=== PATIENT | male | born 1970 | race Caucasian/White ===

== ENCOUNTER → 2022-09-03 10:09 | Outpatient (CLI) | payer OTHER, SELFPAY ==
--- NOTE | 2022-09-03 | DI.ECHO.S_ITS ---
[facility]---------+ [facility] +---------+ : : [address] : [place] : : : : [id number] : : : : Phone: [phone]+ Echocardiogram Report + + :Name: TINA LANDA JR Study Date: 09/03/2022 Height: 69 in : :[facility] ReadingLocation: Weight: 215 lb : : Gender: Male BSA: 2.1 m2 : :: 1970 Age: 52 yrs BP: 151/76 mmHg: :Reason For Study: DYSPNEA ON EXERTION : :Ordering Physician: GIDEON, : :ECTOR Performed By: Antonia Montejo : :Referring: ECTOR ARMENDARIZ : + + Interpretation Summary 1) Normal left ventricular size and thickness with low normal systolic function (EF 50-55%). 2) The right ventricle is normal in size and function. 3) There is mild aortic stenosis (valve area 1.5cm2, mean gradient 11mmHg, severity ratio 0.49). 4) No prior Echo available for comparison. Procedure: A two-dimensional transthoracic echocardiogram with color flow and Doppler was performed. The study quality was technically adequate. There is no prior echocardiogram noted for this patient. The patient was in sinus rhythm with heart rates between 76-85 bpm during the exam. Left Ventricle: The left ventricle is normal in size and wall thickness. The ejection fraction is estimated to be 50-55%. There are no obvious focal wall motion abnormalities noted but poor endocardial definition reduces the sensitivity for the detection of such. Right Ventricle: The right ventricle is normal in size and function. Atria: The left atrial size is normal. Right atrial size is normal. There is no Doppler evidence for an interatrial shunt. Mitral Valve: The mitral valve leaflets appear mildly thickened, but open well. There is mild mitral annular calcification. There is trace mitral regurgitation. Aortic Valve: The aortic valve is mildly calcified. There is discrete nodular thickening of the left coronary cusp. There is mild aortic stenosis. The peak aortic velocity is 2.2 m/sec. The aortic valve mean gradient is 11 mmHg. The calculated aortic valve area is 1.5 cm2. There is trace aortic regurgitation. Tricuspid Valve: The tricuspid valve is normal in structure and function. No tricuspid regurgitation. Pulmonary artery pressures cannot be estimated because of the lack of a measurable TR jet velocity. Pulmonic Valve: The pulmonic valve leaflets are thin and pliable; valve motion is normal. There is mild pulmonic regurgitation. Great Vessels: The aortic root is normal size. The dimensions of the ascending aorta are normal. The IVC is dilated (diameter is greater than 2.1 cm) yet it collapses greater than 50% with a sniff. This suggests a right atrial pressure of 8 mm Hg. Pericardium/ Pleura There is no pericardial effusion. There is no pleural effusion. MMode/2D Measurements & Calculations LVIDd: 4.4 cm LVOT diam: 2.1 cm LVIDs: 3.1 cm Ao root diam: 3.1 cm FS: 28.9 % asc Aorta Diam: 3.1 cm IVSd: 0.96 cm Ao Arch Diam (Prox Trans): 2.8 cm LVPWd: 0.99 cm LV siddiqi. diameter/BSA (cm/m^2): 2.1 LV sys. diameter/BSA (cm/m^2): 1.5 LA A2 area: 22.7 cm2 RA long axis: 5.6 cm LA A4 area: 18.6 cm2 RA area: 18.0 cm2 LA length (vol): 6.1 cm RA vol: 49.2 ml LA vol: 58.5 ml RA : 23.1 ml/m2 LA vol index: 27.5 ml/m2 IVC diam: 2.2 cm RVD1 (basal): 3.6 cm RVD2 (mid): 2.9 cm TAPSE: 2.1 cm Doppler Measurements & Calculations Ao V2 max: 217.5 cm/sec LVOT Max Blane: 97.2 cm/sec Ao V2 mean: 151.5 cm/sec LV V1 max P.8 mmHg Ao max P.9 mmHg LV V1 VTI: 21.4 cm Ao mean P.7 mmHg SAVANAH(I,D): 1.7 cm2 Ao V2 VTI: 43.5 cm SAVANAH(V,D): 1.5 cm2 sev ratio: 0.49 SAVANAH indexed to BSA (cm^2/m^2): 0.78 MV E max blane: 102.3 cm/sec PA V2 max: 116.1 cm/sec MV A max blane: 106.1 cm/sec PA V2 mean: 85.5 cm/sec MV E/A: 0.96 PA mean P.2 mmHg Med Peak E' Blane: 7.0 cm/sec PA pr(Accel): 36.2 mmHg E/E' med: 14.6 Lat Peak E' Blane: 7.2 cm/sec E/E' lat: 14.2 E/e' average: 14.4 MV dec time: 0.27 sec MVA(VTI): 2.2 cm2 MV V2 mean: 77.6 cm/sec SV(LVOT): 72.7 ml MV mean P.8 mmHg MV V2 VTI: 32.5 cm Reading Physician:03:44 PM
--- NOTE | 2022-09-03 21:34 | DI.NM.S_ITS ---
DATE OF SERVICE: 09/03/2022 PROCEDURE PERFORMED: Exercise treadmill, converted to pharmacologic stress and rest myocardial perfusion imaging study with gating to assess ejection fraction and regional wall motion. ORDERING PROVIDER: Thaddeus Armendariz MD INDICATIONS: The patient is a 52-year-old diabetic male with hypertension and exertional dyspnea. CARDIAC STRESS: The patient was initially stressed by a treadmill but was able to complete only 2 minutes, 50 seconds of stage I before being limited by bilateral calf pain concerning for claudication. Because of an inadequate heart rate response, regadenoson 0.4 mg was infused. With this, he had no anginal symptoms. His resting ECG showed a sinus rhythm with normal ST segments and there were no significant ST-segment shifts or arrhythmias with stress. Per protocol, 25.2 millicuries of technetium-99m Myoview was injected and he was imaged 15 minutes later using a gated SPECT acquisition protocol. Earlier in the day while at rest, he had been injected with 12.6 millicuries of technetium- 99m Myoview and was imaged 20 minutes later, again using a quantitated gated SPECT protocol. FINDINGS: 1. Raw data. There is fair myocardial tracer uptake. There is some evidence for diaphragmatic attenuation. The lung/heart ratio is normal at 0.27 with a normal TID ratio of 0.89. 2. Quantitated gated SPECT: Post-stress ejection fraction is 66% without any focal wall motion abnormality and specifically the inferior wall appears to have good contractility. The resting ejection fraction is 63% with a similar contraction pattern. Resting end-diastolic volume is mildly increased at 134 mL. 3. Myocardial perfusion imaging: Post-stress supine images show a mild to moderate perfusion defect throughout the inferior wall, but sparing the inferoapex, in a pattern consistent with diaphragmatic attenuation although this defect persists on the prone images, raising concern that it may reflect a true perfusion defect. There are no other perfusion defects. The resting images show an identical perfusion pattern to that of the post-stress supine images without any improvement.. IMPRESSION: 1. Probable abnormal myocardial perfusion study. 2. There is a fixed inferior defect that persists on the prone images concerning for a nontransmural myocardial infarction, although could also reflect diaphragmatic attenuation, supported by normal wall motion abnormality in this distribution. There is no evidence for any myocardial ischemia. 2. Normal left ventricular systolic function with mildly increased left ventricular volumes. 3. Limited exercise capacity because of bilateral calf pain, concerning for claudication. He had no angina or ECG evidence of ischemia, or any arrhythmias. Johan Puente Jr - TANA/michael/barak doc#: [id number]/job#: [id number] dd: 09/03/2022 16:39:00 dt: 09/03/2022 21:03:00 DICTATING MD/COPIES TO: Luis Marmolejo MD; Thaddeus Armendariz MD COPIES MNE: KSENIA;
== END ==
PROVIDERS: PCP Nurse Practitioner; Referring Provider Internal Medicine Cardiovascular Disease; Visit Provider Internal Medicine Cardiovascular Disease
DX: R06.09 Other forms of dyspnea (principal); E11.9 Type 2 diabetes mellitus without complications; I10 Essential (primary) hypertension
CPT/HCPCS: 78452; 93017; 93306; A9502; J2785

== ENCOUNTER → 2022-10-20 12:30 | Outpatient (CLI) | payer OTHER, SELFPAY ==
--- NOTE | 2022-10-20 | DI.US.S_ITS ---
PROCEDURE: US ARTERIAL DUPLEX LE BI INDICATIONS: PERIPHERAL VASCULAR DISEASE TECHNIQUE: Color and pulse Doppler interrogation was performed of both lower extremity arterial systems, with image documentation. COMPARISON: None. FINDINGS: Right lower extremity: Common femoral artery: 364 cm/sec, with triphasic flow. Deep femoral artery: 315 cm/sec, with triphasic flow. Proximal superficial femoral artery: 606 cm/sec, with biphasic flow. Mid superficial femoral artery: 295 cm/sec, with monophasic flow. Distal superficial femoral artery: 85 cm/sec, with monophasic flow. Popliteal artery: No flow identified Posterior tibial artery: 48 cm/sec, with monophasic flow. Anterior tibial artery/dorsalis pedis: 33 cm/sec, with monophasic flow. Arango-scale imaging description: Severe plaque throughout the right lower extremity. Left lower extremity: Common femoral artery: 370 cm/sec, with triphasic flow. Deep femoral artery: 343 cm/sec, with triphasic flow. Proximal superficial femoral artery: 76 cm/sec, with triphasic flow. Mid superficial femoral artery: 174 cm/sec, with monophasic flow. Distal superficial femoral artery: 171 cm/sec, with monophasic flow. Popliteal artery: 194 cm/sec, with monophasic flow. Posterior tibial artery: 49 cm/sec, with monophasic flow. Anterior tibial artery/dorsalis pedis: 29 cm/sec, with monophasic flow. Arango-scale imaging description: Severe plaque throughout the left lower extremity IMPRESSION: 1. Severe plaque in the common femoral arteries and superficial femoral arteries bilaterally. 2. The right has high-grade stenoses in the COOK FRUIT and SFA with no flow in the popliteal artery. 3. The left lower extremity has high-grade stenoses in the COOK FRUIT, SFA, and PA. 4. Recommend CT angiogram for further evaluation. Dictated by: Jason Godwin M.D. on 10/21/2022 at 11:18 Approved by: Jason Godwin M.D. on 10/21/2022 at 11:25
== END ==
PROVIDERS: PCP Nurse Practitioner; Referring Provider Internal Medicine Cardiovascular Disease; Visit Provider Internal Medicine Cardiovascular Disease
DX: I73.9 Peripheral vascular disease, unspecified (principal)
CPT/HCPCS: 93925

== ENCOUNTER → 2023-06-23 10:43 | Outpatient (CLI) | payer OTHER, SELFPAY ==
[2023-06-23 10:52] VITALS: BP 136/59; PULSE 84; RESP 18; TEMP 37; O2SAT 98
[2023-06-23 11:17] LABS: Add Manual Diff / Slide Review NO; Basophils Absolute Auto 0 /uL (0-100); Basophils Percent Auto 0.9 % (0-2); Eosinophils Absolute Auto 200 /uL (0-450); Eosinophils Percent Auto 3.8 % (2-4); Hematocrit 26.7 % (41-53); Hemoglobin 9.3 g/dL (13.5-17.5); Lymphocytes Absolute Auto 900 /uL (1100-4500); Lymphocytes Percent Auto 17.2 % (25-40); Mean Corpuscular HGB Conc 34.7 % (30-36); Mean Corpuscular Hemoglobin 30.9 PG (26-34); Monocytes Absolute Auto 500 /uL (0-900); Neutrophils Absolute Auto 3500 /uL (1500-7000); Neutrophils Percent Auto 69.1 % (50-75); Platelet Count 186 X10^3/uL (150-400); Red Cell Distribution Width 14.6 % (11.6-14.8); White Blood Cell Count 5.1 X10^3/uL (4.5-11.0)
[2023-06-23] MEDS: EPOETIN ALFA-EPBX 10,000 UNIT/ML VIAL 10000 UNIT SUBCUT (11:23)
== END ==
PROVIDERS: PCP Nurse Practitioner; Referring Provider Internal Medicine Nephrology; Visit Provider Internal Medicine Nephrology
DX: N18.4 Chronic kidney disease, stage 4 (severe) (principal); D63.1 Anemia in chronic kidney disease
CPT/HCPCS: 36415; 85025; 96372; Q5106

== ENCOUNTER → 2023-06-30 10:43 | Outpatient (CLI) | payer OTHER, SELFPAY ==
[2023-06-30 10:51] VITALS: BP 129/61; PULSE 80; RESP 18; TEMP 36.6; O2SAT 98
[2023-06-30] MEDS: EPOETIN ALFA-EPBX 10,000 UNIT/ML VIAL 10000 UNIT SUBCUT (11:02)
== END ==
PROVIDERS: PCP Nurse Practitioner; Referring Provider Internal Medicine Nephrology; Visit Provider Internal Medicine Nephrology
DX: I12.9 Hypertensive chronic kidney disease with stage 1 through stage 4 chronic kidney disease, or unspecified chronic kidney disease (principal); E11.22 Type 2 diabetes mellitus with diabetic chronic kidney disease; N18.4 Chronic kidney disease, stage 4 (severe); D63.1 Anemia in chronic kidney disease
CPT/HCPCS: 96372; Q5106

== ENCOUNTER → 2023-07-07 10:47 | Outpatient (CLI) | payer OTHER, SELFPAY ==
[2023-07-07 11:51] VITALS: BP 133/64; PULSE 87; RESP 18; TEMP 37.1; O2SAT 98
[2023-07-07 12:13] LABS: Add Manual Diff / Slide Review NO; Basophils Absolute Auto 0 /uL (0-100); Eosinophils Absolute Auto 200 /uL (0-450); Eosinophils Percent Auto 3.7 % (2-4); Lymphocytes Absolute Auto 900 /uL (1100-4500); Mean Corpuscular HGB Conc 34.5 % (30-36); Mean Corpuscular Hemoglobin 30.7 PG (26-34); Mean Corpuscular Volume 88.9 fL (80-100); Monocytes Absolute Auto 500 /uL (0-900); Neutrophils Absolute Auto 3200 /uL (1500-7000); Neutrophils Percent Auto 66.3 % (50-75); Platelet Count 185 X10^3/uL (150-400); Red Blood Cell Count 3.27 X10^6/uL (4.5-5.9); Red Cell Distribution Width 14.9 % (11.6-14.8); White Blood Cell Count 4.8 X10^3/uL (4.5-11.0)
[2023-07-07 12:16] LABS: BUN Creatinine Ratio 21.5 (6-22); Blood Urea Nitrogen 64 mg/dL (9-20); Calcium 9.6 mg/dL (8.4-10.2); Carbon Dioxide 22 mmol/L (22-32); Chloride 108 mmol/L (98-107); Estimated Glomerular Filt Rate 24 mL/min (>60); Glucose 70 mg/dL (70-100); HEMOLYSIS 67 (0-50); Potassium 5.3 mmol/L (3.4-5.1); Sodium 140 mmol/L (137-145)
[2023-07-07] MEDS: EPOETIN ALFA-EPBX 10,000 UNIT/ML VIAL 10000 UNIT SUBCUT (12:19)
[2023-07-07 12:51] LABS: Ferritin 69 ng/mL (18-464)
[2023-07-07 13:41] LABS: Percent Iron Saturation 29 % (20-50)
== END ==
LOC: ONC 10:47
PROVIDERS: PCP Nurse Practitioner; Referring Provider Internal Medicine Nephrology; Visit Provider Internal Medicine Nephrology
DX: E11.22 Type 2 diabetes mellitus with diabetic chronic kidney disease (principal); I12.9 Hypertensive chronic kidney disease with stage 1 through stage 4 chronic kidney disease, or unspecified chronic kidney disease; N18.4 Chronic kidney disease, stage 4 (severe); D63.1 Anemia in chronic kidney disease; Z79.4 Long term (current) use of insulin
CPT/HCPCS: 80048; 82728; 85025; 96372; Q5106

== ENCOUNTER → 2023-07-14 10:48 | Outpatient (CLI) | payer OTHER, SELFPAY ==
[2023-07-14 11:00] VITALS: BP 138/60; PULSE 85; RESP 18; TEMP 36.6; O2SAT 97
[2023-07-14] MEDS: EPOETIN ALFA-EPBX 10,000 UNIT/ML VIAL 10000 UNIT SUBCUT (11:11)
[2023-07-21 11:24] LABS: Add Manual Diff / Slide Review NO; Basophils Absolute Auto 100 /uL (0-100); Basophils Percent Auto 1.2 % (0-2); Eosinophils Absolute Auto 200 /uL (0-450); Eosinophils Percent Auto 4.3 % (2-4); Hemoglobin 10.6 g/dL (13.5-17.5); Lymphocytes Absolute Auto 900 /uL (1100-4500); Lymphocytes Percent Auto 16.4 % (25-40); Mean Corpuscular HGB Conc 34.1 % (30-36); Mean Corpuscular Hemoglobin 30.4 PG (26-34); Mean Corpuscular Volume 89.2 fL (80-100); Monocytes Absolute Auto 700 /uL (0-900); Monocytes Percent Auto 13.4 % (3-14); Neutrophils Absolute Auto 3500 /uL (1500-7000); Neutrophils Percent Auto 64.7 % (50-75); Platelet Count 211 X10^3/uL (150-400); Red Blood Cell Count 3.47 X10^6/uL (4.5-5.9); Red Cell Distribution Width 14.5 % (11.6-14.8); White Blood Cell Count 5.4 X10^3/uL (4.5-11.0)
== END ==
LOC: ONC 10:48
PROVIDERS: PCP Nurse Practitioner; Referring Provider Internal Medicine Nephrology; Visit Provider Internal Medicine Nephrology
DX: E11.22 Type 2 diabetes mellitus with diabetic chronic kidney disease (principal); I13.10 Hypertensive heart and chronic kidney disease without heart failure, with stage 1 through stage 4 chronic kidney disease, or unspecified chronic kidney disease; N18.4 Chronic kidney disease, stage 4 (severe); D63.1 Anemia in chronic kidney disease; Z79.4 Long term (current) use of insulin
CPT/HCPCS: 85025; 96372; Q5106

== ENCOUNTER → 2023-07-21 11:05 | Outpatient (CLI) | payer OTHER, SELFPAY ==
[2023-07-21 11:28] VITALS: BP 126/62; PULSE 79; RESP 16; TEMP 36.8; O2SAT 95
[2023-07-21] MEDS: EPOETIN ALFA-EPBX 10,000 UNIT/ML VIAL 10000 UNIT SUBCUT (11:56)
== END ==
LOC: ONC 11:05
PROVIDERS: PCP Nurse Practitioner; Referring Provider Internal Medicine Nephrology; Visit Provider Internal Medicine Nephrology
DX: D63.1 Anemia in chronic kidney disease (principal); N18.4 Chronic kidney disease, stage 4 (severe)
CPT/HCPCS: 36415; 96372; Q5106

== ENCOUNTER → 2023-07-28 10:40 | Outpatient (CLI) | payer OTHER, SELFPAY ==
[2023-07-28 10:57] VITALS: BP 121/51; PULSE 72; RESP 16; TEMP 37.3; O2SAT 98
[2023-07-28] MEDS: EPOETIN ALFA-EPBX 10,000 UNIT/ML VIAL 10000 UNIT SUBCUT (11:05)
== END ==
LOC: ONC 10:41
PROVIDERS: PCP Nurse Practitioner; Referring Provider Internal Medicine Nephrology; Visit Provider Internal Medicine Nephrology
DX: N18.4 Chronic kidney disease, stage 4 (severe) (principal); D63.1 Anemia in chronic kidney disease
CPT/HCPCS: 96372; Q5106

== ENCOUNTER → 2023-08-04 10:44 | Outpatient (CLI) | payer OTHER, SELFPAY ==
[2023-08-04 11:06] VITALS: BP 129/66; PULSE 83; RESP 16; TEMP 36.7; O2SAT 100
[2023-08-04 11:20] LABS: BUN Creatinine Ratio 13.9 (6-22); Blood Urea Nitrogen 47 mg/dL (9-20); Calcium 8.7 mg/dL (8.4-10.2); Carbon Dioxide 24 mmol/L (22-32); Chloride 111 mmol/L (98-107); Estimated Glomerular Filt Rate 21 mL/min (>60); Glucose 53 mg/dL (70-100); HEMOLYSIS < 15 (0-50); Potassium 5.3 mmol/L (3.4-5.1); Sodium 141 mmol/L (137-145)
[2023-08-04 11:23] LABS: Add Manual Diff / Slide Review NO; Basophils Absolute Auto 0 /uL (0-100); Basophils Percent Auto 1.1 % (0-2); Eosinophils Absolute Auto 200 /uL (0-450); Eosinophils Percent Auto 3.7 % (2-4); Hematocrit 28.5 % (41-53); Hemoglobin 9.8 g/dL (13.5-17.5); Lymphocytes Absolute Auto 700 /uL (1100-4500); Lymphocytes Percent Auto 16.9 % (25-40); Mean Corpuscular HGB Conc 34.4 % (30-36); Mean Corpuscular Hemoglobin 30.7 PG (26-34); Mean Corpuscular Volume 89.1 fL (80-100); Monocytes Absolute Auto 400 /uL (0-900); Monocytes Percent Auto 10.2 % (3-14); Neutrophils Absolute Auto 3000 /uL (1500-7000); Neutrophils Percent Auto 68.1 % (50-75); Platelet Count 215 X10^3/uL (150-400); Red Cell Distribution Width 14.7 % (11.6-14.8); White Blood Cell Count 4.4 X10^3/uL (4.5-11.0)
[2023-08-04] MEDS: EPOETIN ALFA-EPBX 10,000 UNIT/ML VIAL 10000 UNIT SUBCUT (11:33)
== END ==
LOC: ONC 10:44
PROVIDERS: PCP Nurse Practitioner; Referring Provider Internal Medicine Nephrology; Visit Provider Internal Medicine Nephrology
DX: N18.4 Chronic kidney disease, stage 4 (severe) (principal); D63.1 Anemia in chronic kidney disease
CPT/HCPCS: 36415; 80048; 85025; 96372; Q5106

== ENCOUNTER → 2023-08-11 10:50 | Outpatient (CLI) | payer OTHER, SELFPAY ==
[2023-08-11 10:55] VITALS: BP 131/68; PULSE 86; RESP 16; TEMP 37.3; O2SAT 97
[2023-08-11] MEDS: EPOETIN ALFA-EPBX 10,000 UNIT, EPOETIN ALFA-EPBX 4,000 UNIT 14000 UNIT SUBCUT (11:03)
== END ==
PROVIDERS: PCP Nurse Practitioner; Referring Provider Internal Medicine Nephrology; Visit Provider Internal Medicine Nephrology
DX: N18.4 Chronic kidney disease, stage 4 (severe) (principal); D63.1 Anemia in chronic kidney disease
CPT/HCPCS: 96372; Q5106

== ENCOUNTER → 2023-08-18 10:49 | Outpatient (CLI) | payer OTHER, SELFPAY ==
[2023-08-18 11:05] LABS: Add Manual Diff / Slide Review NO; Basophils Absolute Auto 0 /uL (0-100); Eosinophils Absolute Auto 200 /uL (0-450); Eosinophils Percent Auto 4.4 % (2-4); Hematocrit 29.9 % (41-53); Hemoglobin 10.3 g/dL (13.5-17.5); Lymphocytes Absolute Auto 800 /uL (1100-4500); Lymphocytes Percent Auto 18.1 % (25-40); Mean Corpuscular HGB Conc 34.5 % (30-36); Mean Corpuscular Hemoglobin 30.5 PG (26-34); Mean Corpuscular Volume 88.3 fL (80-100); Monocytes Absolute Auto 500 /uL (0-900); Monocytes Percent Auto 10.2 % (3-14); Neutrophils Absolute Auto 3100 /uL (1500-7000); Neutrophils Percent Auto 66.3 % (50-75); Platelet Count 189 X10^3/uL (150-400); Red Blood Cell Count 3.38 X10^6/uL (4.5-5.9); White Blood Cell Count 4.6 X10^3/uL (4.5-11.0)
[2023-08-18] MEDS: EPOETIN ALFA-EPBX 10,000 UNIT, EPOETIN ALFA-EPBX 4,000 UNIT 14000 UNIT SUBCUT (11:49)
[2023-08-18 11:57] VITALS: BP 143/72; PULSE 82; RESP 16; TEMP 37.1; O2SAT 95
== END ==
LOC: ONC 10:50
PROVIDERS: PCP Nurse Practitioner; Referring Provider Internal Medicine Nephrology; Visit Provider Internal Medicine Nephrology
DX: N18.4 Chronic kidney disease, stage 4 (severe) (principal); D63.1 Anemia in chronic kidney disease
CPT/HCPCS: 36415; 85025; 96372; Q5106

== ENCOUNTER → 2023-08-25 10:43 | Outpatient (CLI) | payer OTHER, SELFPAY ==
[2023-08-25 10:52] VITALS: BP 129/64; PULSE 88; RESP 16; TEMP 37.2; O2SAT 95
[2023-08-25] MEDS: EPOETIN ALFA-EPBX 10,000 UNIT, EPOETIN ALFA-EPBX 4,000 UNIT 14000 UNIT SUBCUT (11:02)
== END ==
LOC: ONC 10:43
PROVIDERS: PCP Nurse Practitioner; Referring Provider Internal Medicine Nephrology; Visit Provider Internal Medicine Nephrology
DX: N18.4 Chronic kidney disease, stage 4 (severe) (principal); D63.1 Anemia in chronic kidney disease
CPT/HCPCS: 96372; Q5106

== ENCOUNTER → 2023-09-01 10:48 | Outpatient (CLI) | payer OTHER, SELFPAY ==
--- NOTE | 2023-09-01 12:20 | PC.NURSE ---
Addendum entered by Carla Soto R.N. 09/01/23 12:26: LVM for pt to return to clinic in 2 weeks for labs and possible injection per Tammy at Dr. Rees's office. Original Note: Hgb 11.6: pt did not need Retacrit today. Spoke to Tammy at Dr. Rees's office about pt not needing injection today. Pt will return to clinic in 2 weeks for CBC and possible injection.
== END ==
LOC: ONC 10:49
PROVIDERS: PCP Nurse Practitioner; Referring Provider Internal Medicine Nephrology; Visit Provider Internal Medicine Nephrology
DX: N18.4 Chronic kidney disease, stage 4 (severe) (principal); D63.1 Anemia in chronic kidney disease
CPT/HCPCS: 36415; 80048; 85025

== ENCOUNTER → 2023-09-15 10:59 | Outpatient (CLI) | payer OTHER, SELFPAY ==
[2023-09-15 11:35] LABS: Add Manual Diff / Slide Review NO; Basophils Absolute Auto 100 /uL (0-100); Basophils Percent Auto 1.1 % (0-2); Eosinophils Absolute Auto 200 /uL (0-450); Eosinophils Percent Auto 3.3 % (2-4); Hematocrit 33.8 % (41-53); Hemoglobin 11.8 g/dL (13.5-17.5); Lymphocytes Absolute Auto 1100 /uL (1100-4500); Lymphocytes Percent Auto 20.1 % (25-40); Mean Corpuscular HGB Conc 34.8 % (30-36); Mean Corpuscular Hemoglobin 29.5 PG (26-34); Mean Corpuscular Volume 84.6 fL (80-100); Monocytes Absolute Auto 500 /uL (0-900); Monocytes Percent Auto 9.1 % (3-14); Neutrophils Absolute Auto 3700 /uL (1500-7000); Neutrophils Percent Auto 66.4 % (50-75); Platelet Count 203 X10^3/uL (150-400); Red Cell Distribution Width 14.7 % (11.6-14.8); White Blood Cell Count 5.6 X10^3/uL (4.5-11.0)
[2023-09-15 11:44] LABS: BUN Creatinine Ratio 14.1 (6-22); Blood Urea Nitrogen 45 mg/dL (9-20); Carbon Dioxide 25 mmol/L (22-32); Chloride 109 mmol/L (98-107); Estimated Glomerular Filt Rate 22 mL/min (>60); Glucose 110 mg/dL (70-100); HEMOLYSIS < 15 (0-50); Potassium 4.1 mmol/L (3.4-5.1); Sodium 142 mmol/L (137-145)
--- NOTE | 2023-09-15 11:54 | PC.NURSE ---
HGB 11.8 from today's blood draw; per AJ Louis at Dr. Bass's office patient to return in 2 weeks; patient informed and he voiced understanding.
[2023-09-15 12:21] VITALS: BP 139/81; PULSE 94; RESP 16; TEMP 36.8
== END ==
LOC: ONC 10:59
PROVIDERS: PCP Nurse Practitioner; Referring Provider Internal Medicine Nephrology; Visit Provider Internal Medicine Nephrology
DX: N18.4 Chronic kidney disease, stage 4 (severe) (principal); D63.1 Anemia in chronic kidney disease
CPT/HCPCS: 36415; 80048; 85025

== ENCOUNTER → 2023-09-29 10:44 | Outpatient (CLI) | payer OTHER, SELFPAY ==
[2023-09-29 11:14] LABS: Add Manual Diff / Slide Review NO; Basophils Absolute Auto 0 /uL (0-100); Basophils Percent Auto 0.8 % (0-2); Eosinophils Absolute Auto 200 /uL (0-450); Eosinophils Percent Auto 3.1 % (2-4); Hematocrit 31.7 % (41-53); Hemoglobin 11.1 g/dL (13.5-17.5); Lymphocytes Absolute Auto 900 /uL (1100-4500); Mean Corpuscular HGB Conc 34.9 % (30-36); Mean Corpuscular Hemoglobin 29.7 PG (26-34); Mean Corpuscular Volume 85.1 fL (80-100); Monocytes Absolute Auto 400 /uL (0-900); Monocytes Percent Auto 8.2 % (3-14); Neutrophils Absolute Auto 3800 /uL (1500-7000); Neutrophils Percent Auto 70.9 % (50-75); Platelet Count 218 X10^3/uL (150-400); Red Blood Cell Count 3.72 X10^6/uL (4.5-5.9); White Blood Cell Count 5.3 X10^3/uL (4.5-11.0)
[2023-09-29 11:23] VITALS: BP 123/62; PULSE 89; RESP 16; TEMP 36.7; O2SAT 99
[2023-09-29 11:39] LABS: Percent Iron Saturation 244 % (20-50)
[2023-09-29] MEDS: EPOETIN ALFA-EPBX 10,000 UNIT/ML VIAL 10000 UNIT SUBCUT (11:46)
[2023-09-29 18:39] LABS: Ferritin 109 ng/mL (18-464)
== END ==
PROVIDERS: PCP Nurse Practitioner; Referring Provider Internal Medicine Nephrology; Visit Provider Internal Medicine Nephrology
DX: N18.4 Chronic kidney disease, stage 4 (severe) (principal); D63.1 Anemia in chronic kidney disease
CPT/HCPCS: 82728; 85025; 96372; Q5106

== ENCOUNTER → 2023-10-13 10:49 | Outpatient (CLI) | payer OTHER, SELFPAY ==
[2023-10-13 11:16] VITALS: BP 130/70; PULSE 86; RESP 16; TEMP 36.6; O2SAT 94
[2023-10-13] MEDS: EPOETIN ALFA-EPBX 10,000 UNIT/ML VIAL 10000 UNIT SUBCUT (12:08)
== END ==
LOC: ONC 10:50
PROVIDERS: PCP Nurse Practitioner; Referring Provider Internal Medicine Nephrology; Visit Provider Internal Medicine Nephrology
DX: N18.4 Chronic kidney disease, stage 4 (severe) (principal); D63.1 Anemia in chronic kidney disease
CPT/HCPCS: 96372; Q5106

== ENCOUNTER → 2023-10-27 10:49 | Outpatient (CLI) | payer OTHER, SELFPAY ==
[2023-10-27 11:21] VITALS: BP 135/74; PULSE 91; RESP 16; TEMP 36.9; O2SAT 96
[2023-10-27] MEDS: EPOETIN ALFA-EPBX 10,000 UNIT/ML VIAL 10000 UNIT SUBCUT (11:43)
== END ==
LOC: ONC 10:50
PROVIDERS: PCP Nurse Practitioner; Referring Provider Internal Medicine Nephrology; Visit Provider Internal Medicine Nephrology
DX: N18.4 Chronic kidney disease, stage 4 (severe) (principal); D63.1 Anemia in chronic kidney disease
CPT/HCPCS: 36415; 96372; Q5106

== ENCOUNTER → 2023-11-01 09:03 | Outpatient (CLI) | payer OTHER, SELFPAY ==
--- NOTE | 2023-11-01 09:04 | DI.ECHO.S_ITS ---
[facility]---------+ [facility] : : [address] : : [place] : : [id number] : : Phone: [phone] Echocardiogram Report + + :Name: TINA LANDA JR Study Date: 11/01/2023 Height: 69 in : :[facility] ReadingLocation: Weight: 202 lb : : Gender: Male BSA: 2.1 m2 : :: 1970 Age: 53 yrs BP: 143/82 mmHg: :Reason For Study: AORTIC STENOSIS : :Ordering Physician: GIDEON, : :ECTOR Performed By: Antonia Montejo : :Referring: ECTOR ARMENDARIZ : + + Interpretation Summary 1) Normal left ventricular size, wall motion, and systolic function (EF 55- 60%). 2) Normal right ventricular size and function. 3) There is mild aortic stenosis (valve area 1.5cm2, mean gradient 15mmHg, severity ratio 0.41). 4) Compared to the echo done 09/03/2022, no significant change. Procedure: A two-dimensional transthoracic echocardiogram with color flow and Doppler was performed. The study quality was technically adequate. Comparison is made with the echocardiogram of 09/03/2022. The heart rate ranged between 87-97 bpm during the study. Left Ventricle: The left ventricle is normal in size. There is mild concentric left ventricular hypertrophy. The ejection fraction is estimated to be 55-60%. Left ventricular wall motion is normal. Right Ventricle: The right ventricle is normal in size and function. Atria: The left atrial size is normal. Right atrial size is normal. There is no Doppler evidence for an interatrial shunt. Mitral Valve: There is mild mitral annular calcification. There is no mitral regurgitation noted. Aortic Valve: The aortic valve is mildly calcified. The aortic valve is trileaflet. The peak aortic velocity is 2.4 m/sec. The aortic valve mean gradient is 15 mmHg. The calculated aortic valve area is 1.5 cm2. There is mild to moderate aortic stenosis. No aortic regurgitation is present. Tricuspid Valve: The tricuspid valve is normal in structure and function. There is trace tricuspid regurgitation. Pulmonary artery pressures cannot be estimated because of the lack of a measurable TR jet velocity. Pulmonic Valve: The pulmonic valve leaflets are thin and pliable; valve motion is normal. There is no pulmonic valvular regurgitation. Great Vessels: The aortic root is normal size. The dimensions of the ascending aorta are normal. The IVC is of normal diameter and collapses greater than 50% with a sniff. This suggests a low right atrial pressure of 3 mm Hg. Pericardium/ Pleura There is no pericardial effusion. There is no pleural effusion. MMode/2D Measurements & Calculations LVIDd: 3.9 cm LVOT diam: 2.2 cm LVIDs: 2.6 cm Ao root diam: 3.7 cm FS: 34.9 % asc Aorta Diam: 3.2 cm IVSd: 1.1 cm Ao Arch Diam (Prox Trans): 3.0 cm LVPWd: 1.1 cm LV siddiqi. diameter/BSA (cm/m^2): 1.9 LV sys. diameter/BSA (cm/m^2): 1.2 LA A2 area: 20.3 cm2 RA long axis: 4.8 cm LA A4 area: 16.2 cm2 RA area: 14.7 cm2 LA length (vol): 5.1 cm RA vol: 38.0 ml LA vol: 54.5 ml RA : 18.3 ml/m2 LA vol index: 26.3 ml/m2 IVC diam: 1.6 cm RVD1 (basal): 3.6 cm TAPSE: 2.0 cm Doppler Measurements & Calculations Ao V2 max: 239.1 cm/sec LVOT Max Blane: 91.2 cm/sec Ao V2 mean: 169.7 cm/sec LV V1 max P.3 mmHg Ao max P.3 mmHg LV V1 VTI: 18.2 cm Ao mean P.1 mmHg SAVANAH(I,D): 1.6 cm2 Ao V2 VTI: 44.0 cm SAVANAH(V,D): 1.5 cm2 sev ratio: 0.41 SAVANAH indexed to BSA (cm^2/m^2): 0.77 MV E max blane: 83.5 cm/sec PA V2 max: 102.0 cm/sec MV A max blane: 138.2 cm/sec PA V2 mean: 77.4 cm/sec MV E/A: 0.60 PA mean P.6 mmHg Lat Peak E' Blane: 7.3 cm/sec PA pr(Accel): 29.3 mmHg E/E' lat: 11.4 MV dec time: 0.19 sec SV(OT): 70.4 ml Reading Physician:08:42 AM
== END ==
PROVIDERS: PCP Nurse Practitioner; Referring Provider Internal Medicine Cardiovascular Disease; Visit Provider Internal Medicine Cardiovascular Disease
DX: I34.81 Nonrheumatic mitral (valve) annulus calcification (principal); I35.0 Nonrheumatic aortic (valve) stenosis
CPT/HCPCS: 93306

== ENCOUNTER → 2023-11-24 10:28 | Outpatient (CLI) | payer OTHER, SELFPAY ==
[2023-11-24 11:04] LABS: Add Manual Diff / Slide Review NO; Basophils Absolute Auto 100 /uL (0-100); Basophils Percent Auto 1.1 % (0-2); Eosinophils Absolute Auto 200 /uL (0-450); Eosinophils Percent Auto 3.8 % (2-4); Hematocrit 30.1 % (41-53); Hemoglobin 10.5 g/dL (13.5-17.5); Lymphocytes Absolute Auto 1100 /uL (1100-4500); Lymphocytes Percent Auto 19.7 % (25-40); Mean Corpuscular HGB Conc 34.8 % (30-36); Mean Corpuscular Hemoglobin 30.4 PG (26-34); Mean Corpuscular Volume 87.3 fL (80-100); Monocytes Absolute Auto 400 /uL (0-900); Monocytes Percent Auto 6.6 % (3-14); Neutrophils Absolute Auto 3700 /uL (1500-7000); Neutrophils Percent Auto 68.8 % (50-75); Platelet Count 213 X10^3/uL (150-400); Red Blood Cell Count 3.45 X10^6/uL (4.5-5.9); Red Cell Distribution Width 16.6 % (11.6-14.8); White Blood Cell Count 5.4 X10^3/uL (4.5-11.0)
[2023-11-24 11:17] VITALS: BP 122/62; PULSE 76; RESP 18; TEMP 37.2; O2SAT 97
[2023-11-24 11:22] LABS: BUN Creatinine Ratio 13.2 (6-22); Blood Urea Nitrogen 40 mg/dL (9-20); Calcium 8.3 mg/dL (8.4-10.2); Carbon Dioxide 25 mmol/L (22-32); Chloride 110 mmol/L (98-107); Estimated Glomerular Filt Rate 24 mL/min (>60); Glucose 67 mg/dL (70-100); HEMOLYSIS < 15 (0-50); Potassium 4.4 mmol/L (3.4-5.1); Sodium 141 mmol/L (137-145)
[2023-11-24] MEDS: EPOETIN ALFA-EPBX 10,000 UNIT/ML VIAL 10000 UNIT SUBCUT (11:49)
== END ==
LOC: ONC 10:29
PROVIDERS: PCP Nurse Practitioner; Referring Provider Internal Medicine Nephrology; Visit Provider Internal Medicine Nephrology
DX: N18.4 Chronic kidney disease, stage 4 (severe) (principal); D63.1 Anemia in chronic kidney disease
CPT/HCPCS: 80048; 85025; 96372; Q5106

== ENCOUNTER → 2023-12-08 10:53 | Outpatient (CLI) | payer OTHER, SELFPAY ==
[2023-12-08 11:05] VITALS: BP 114/62; PULSE 94; RESP 79; TEMP 37.2; O2SAT 99
[2023-12-08 11:26] LABS: Add Manual Diff / Slide Review NO; Basophils Absolute Auto 0 /uL (0-100); Basophils Percent Auto 0.9 % (0-2); Eosinophils Absolute Auto 100 /uL (0-450); Eosinophils Percent Auto 2.4 % (2-4); Hematocrit 30.4 % (41-53); Hemoglobin 10.7 g/dL (13.5-17.5); Lymphocytes Absolute Auto 1000 /uL (1100-4500); Lymphocytes Percent Auto 19.5 % (25-40); Mean Corpuscular Hemoglobin 30.6 PG (26-34); Mean Corpuscular Volume 87.3 fL (80-100); Monocytes Absolute Auto 500 /uL (0-900); Monocytes Percent Auto 8.9 % (3-14); Neutrophils Absolute Auto 3600 /uL (1500-7000); Neutrophils Percent Auto 68.3 % (50-75); Platelet Count 194 X10^3/uL (150-400); Red Blood Cell Count 3.48 X10^6/uL (4.5-5.9); Red Cell Distribution Width 16.6 % (11.6-14.8); White Blood Cell Count 5.2 X10^3/uL (4.5-11.0)
[2023-12-08 11:33] LABS: BUN Creatinine Ratio 11.2 (6-22); Blood Urea Nitrogen 35 mg/dL (9-20); Calcium 8.6 mg/dL (8.4-10.2); Carbon Dioxide 26 mmol/L (22-32); Chloride 111 mmol/L (98-107); Estimated Glomerular Filt Rate 23 mL/min (>60); Glucose 104 mg/dL (70-100); HEMOLYSIS < 15 (0-50); Potassium 4.3 mmol/L (3.4-5.1); Sodium 142 mmol/L (137-145)
[2023-12-08] MEDS: EPOETIN ALFA-EPBX 10,000 UNIT/ML VIAL 10000 UNIT SUBCUT (11:51)
== END ==
LOC: ONC 10:53
PROVIDERS: PCP Nurse Practitioner; Referring Provider Internal Medicine Nephrology; Visit Provider Internal Medicine Nephrology
DX: N18.4 Chronic kidney disease, stage 4 (severe) (principal); D63.1 Anemia in chronic kidney disease
CPT/HCPCS: 80048; 85025; 96372; Q5106

== ENCOUNTER → 2023-12-22 10:58 | Outpatient (CLI) | payer OTHER, SELFPAY ==
[2023-12-22 11:29] LABS: Add Manual Diff / Slide Review NO; Basophils Absolute Auto 0 /uL (0-100); Basophils Percent Auto 0.6 % (0-2); Eosinophils Absolute Auto 200 /uL (0-450); Eosinophils Percent Auto 3.1 % (2-4); Hematocrit 32.1 % (41-53); Hemoglobin 11.3 g/dL (13.5-17.5); Lymphocytes Absolute Auto 1000 /uL (1100-4500); Lymphocytes Percent Auto 17.7 % (25-40); Mean Corpuscular HGB Conc 35.1 % (30-36); Mean Corpuscular Hemoglobin 31.3 PG (26-34); Mean Corpuscular Volume 89.2 fL (80-100); Monocytes Absolute Auto 500 /uL (0-900); Neutrophils Absolute Auto 4000 /uL (1500-7000); Neutrophils Percent Auto 70.6 % (50-75); Platelet Count 206 X10^3/uL (150-400); Red Cell Distribution Width 16.4 % (11.6-14.8); White Blood Cell Count 5.6 X10^3/uL (4.5-11.0)
[2023-12-22 12:17] VITALS: BP 134/69; PULSE 83; RESP 18; TEMP 36.6; O2SAT 97
[2023-12-22] MEDS: EPOETIN ALFA-EPBX 10,000 UNIT/ML VIAL 10000 UNIT SUBCUT (12:20)
== END ==
PROVIDERS: PCP Nurse Practitioner; Referring Provider Internal Medicine Nephrology; Visit Provider Internal Medicine Nephrology
DX: N18.4 Chronic kidney disease, stage 4 (severe) (principal); D63.1 Anemia in chronic kidney disease
CPT/HCPCS: 36415; 85025; 96372; Q5106

== ENCOUNTER → 2024-01-05 10:48 | Outpatient (CLI) | payer OTHER, SELFPAY ==
[2024-01-05 11:15] VITALS: BP 130/70; PULSE 98; RESP 18; TEMP 36.6; O2SAT 97
[2024-01-05 11:17] LABS: Add Manual Diff / Slide Review NO; Basophils Absolute Auto 100 /uL (0-100); Basophils Percent Auto 0.9 % (0-2); Eosinophils Absolute Auto 100 /uL (0-450); Eosinophils Percent Auto 2.6 % (2-4); Hematocrit 33.3 % (41-53); Hemoglobin 11.5 g/dL (13.5-17.5); Lymphocytes Absolute Auto 1100 /uL (1100-4500); Lymphocytes Percent Auto 19.4 % (25-40); Mean Corpuscular HGB Conc 34.5 % (30-36); Mean Corpuscular Hemoglobin 30.7 PG (26-34); Monocytes Absolute Auto 500 /uL (0-900); Monocytes Percent Auto 8.8 % (3-14); Neutrophils Absolute Auto 3900 /uL (1500-7000); Neutrophils Percent Auto 68.3 % (50-75); Platelet Count 224 X10^3/uL (150-400); Red Blood Cell Count 3.75 X10^6/uL (4.5-5.9); Red Cell Distribution Width 15.6 % (11.6-14.8); White Blood Cell Count 5.7 X10^3/uL (4.5-11.0)
[2024-01-05 11:28] LABS: HEMOLYSIS < 15 (0-50); Iron 74 ug/dL (49-181)
[2024-01-05 11:29] LABS: BUN Creatinine Ratio 12.4 (6-22); Blood Urea Nitrogen 39 mg/dL (9-20); Calcium 9.4 mg/dL (8.4-10.2); Carbon Dioxide 26 mmol/L (22-32); Chloride 107 mmol/L (98-107); Estimated Glomerular Filt Rate 23 mL/min (>60); Glucose 83 mg/dL (70-100); HEMOLYSIS < 15 (0-50); Potassium 4.5 mmol/L (3.4-5.1); Sodium 140 mmol/L (137-145)
[2024-01-05 11:39] LABS: Transferrin 188 mg/dL (206-381)
[2024-01-05 11:55] LABS: Percent Iron Saturation 29 % (20-50); Total Iron Binding Capacity 254 ug/dL (261-462)
[2024-01-05 12:07] LABS: Ferritin 103 ng/mL (18-464)
--- NOTE | 2024-01-05 13:09 | PC.NURSE ---
HEMOGLOBIN 11.5 Dr. Porter's RN notified of lab value. Verbal order received to hold epo injection this week and recheck labs in 2 weeks. Pt made aware and voiced understanding.
== END ==
PROVIDERS: PCP Nurse Practitioner; Referring Provider Internal Medicine Nephrology; Visit Provider Internal Medicine Nephrology
DX: N18.4 Chronic kidney disease, stage 4 (severe) (principal); D63.1 Anemia in chronic kidney disease
CPT/HCPCS: 36415; 80048; 82728; 83540; 83550; 85025

== ENCOUNTER → 2024-01-19 10:34 | Outpatient (CLI) | payer OTHER, SELFPAY ==
[2024-01-19 10:59] VITALS: BP 124/72; PULSE 96; RESP 16; TEMP 37; O2SAT 99
[2024-01-19 11:12] LABS: Add Manual Diff / Slide Review NO; Basophils Absolute Auto 0 /uL (0-100); Basophils Percent Auto 0.6 % (0-2); Eosinophils Absolute Auto 100 /uL (0-450); Hematocrit 32.5 % (41-53); Hemoglobin 11.2 g/dL (13.5-17.5); Lymphocytes Absolute Auto 1000 /uL (1100-4500); Lymphocytes Percent Auto 15.8 % (25-40); Mean Corpuscular HGB Conc 34.6 % (30-36); Mean Corpuscular Hemoglobin 30.7 PG (26-34); Mean Corpuscular Volume 88.9 fL (80-100); Monocytes Absolute Auto 500 /uL (0-900); Monocytes Percent Auto 7.4 % (3-14); Neutrophils Absolute Auto 4700 /uL (1500-7000); Neutrophils Percent Auto 74.2 % (50-75); Platelet Count 215 X10^3/uL (150-400); Red Blood Cell Count 3.66 X10^6/uL (4.5-5.9); Red Cell Distribution Width 15.3 % (11.6-14.8); White Blood Cell Count 6.4 X10^3/uL (4.5-11.0)
[2024-01-19] MEDS: EPOETIN ALFA-EPBX 10,000 UNIT/ML VIAL 10000 UNIT SUBCUT (11:24)
== END ==
LOC: ONC 10:50
PROVIDERS: PCP Nurse Practitioner; Referring Provider Internal Medicine Nephrology; Visit Provider Internal Medicine Nephrology
DX: N18.4 Chronic kidney disease, stage 4 (severe) (principal); D63.1 Anemia in chronic kidney disease
CPT/HCPCS: 85025; 96372; Q5106

== ENCOUNTER → 2024-02-02 13:51 | Outpatient (CLI) | payer OTHER, SELFPAY ==
[2024-02-02 14:15] LABS: Add Manual Diff / Slide Review NO; Basophils Absolute Auto 100 /uL (0-100); Basophils Percent Auto 0.9 % (0-2); Eosinophils Absolute Auto 100 /uL (0-450); Eosinophils Percent Auto 2.3 % (2-4); Hematocrit 32.1 % (41-53); Hemoglobin 11.2 g/dL (13.5-17.5); Lymphocytes Absolute Auto 1400 /uL (1100-4500); Mean Corpuscular HGB Conc 34.7 % (30-36); Mean Corpuscular Hemoglobin 31.2 PG (26-34); Mean Corpuscular Volume 89.8 fL (80-100); Monocytes Absolute Auto 500 /uL (0-900); Monocytes Percent Auto 8.7 % (3-14); Neutrophils Absolute Auto 3700 /uL (1500-7000); Neutrophils Percent Auto 64.1 % (50-75); Platelet Count 198 X10^3/uL (150-400); Red Blood Cell Count 3.57 X10^6/uL (4.5-5.9); Red Cell Distribution Width 15.4 % (11.6-14.8); White Blood Cell Count 5.8 X10^3/uL (4.5-11.0)
[2024-02-02 14:17] VITALS: BP 117/65; PULSE 95; RESP 16; TEMP 36.8; O2SAT 96
[2024-02-02 14:25] LABS: BUN Creatinine Ratio 12.5 (6-22); Blood Urea Nitrogen 38 mg/dL (9-20); Calcium 8.8 mg/dL (8.4-10.2); Carbon Dioxide 25 mmol/L (22-32); Chloride 105 mmol/L (98-107); Estimated Glomerular Filt Rate 23 mL/min (>60); Glucose 115 mg/dL (70-100); HEMOLYSIS < 15 (0-50); Potassium 4.1 mmol/L (3.4-5.1); Sodium 137 mmol/L (137-145)
[2024-02-02] MEDS: EPOETIN ALFA-EPBX 10,000 UNIT/ML VIAL 10000 UNIT SUBCUT (14:44)
== END ==
LOC: ONC 13:51
PROVIDERS: PCP Nurse Practitioner; Referring Provider Internal Medicine Nephrology; Visit Provider Internal Medicine Nephrology
DX: N18.4 Chronic kidney disease, stage 4 (severe) (principal); D63.1 Anemia in chronic kidney disease
CPT/HCPCS: 80048; 85025; 96372; Q5106

== ENCOUNTER → 2024-02-16 10:48 | Outpatient (CLI) | payer OTHER, SELFPAY ==
[2024-02-16 11:12] LABS: Add Manual Diff / Slide Review NO; Basophils Absolute Auto 100 /uL (0-100); Basophils Percent Auto 1.2 % (0-2); Eosinophils Absolute Auto 200 /uL (0-450); Eosinophils Percent Auto 3.5 % (2-4); Hematocrit 31.9 % (41-53); Hemoglobin 11.3 g/dL (13.5-17.5); Lymphocytes Absolute Auto 1200 /uL (1100-4500); Mean Corpuscular HGB Conc 35.3 % (30-36); Mean Corpuscular Hemoglobin 31.4 PG (26-34); Mean Corpuscular Volume 89.1 fL (80-100); Monocytes Absolute Auto 500 /uL (0-900); Monocytes Percent Auto 8.8 % (3-14); Neutrophils Absolute Auto 4000 /uL (1500-7000); Neutrophils Percent Auto 66.5 % (50-75); Platelet Count 215 X10^3/uL (150-400); Red Blood Cell Count 3.59 X10^6/uL (4.5-5.9); Red Cell Distribution Width 15.4 % (11.6-14.8); White Blood Cell Count 6.1 X10^3/uL (4.5-11.0)
[2024-02-16 11:19] VITALS: BP 118/57; PULSE 95; RESP 16; TEMP 36.6; O2SAT 96
[2024-02-16] MEDS: EPOETIN ALFA-EPBX 10,000 UNIT/ML VIAL 10000 UNIT SUBCUT (11:44)
== END ==
LOC: ONC 10:48
PROVIDERS: PCP Nurse Practitioner; Referring Provider Internal Medicine Nephrology; Visit Provider Internal Medicine Nephrology
DX: N18.4 Chronic kidney disease, stage 4 (severe) (principal); D63.1 Anemia in chronic kidney disease
CPT/HCPCS: 85025; 96372; Q5106

== ENCOUNTER → 2024-03-15 10:46 | Outpatient (CLI) | payer OTHER, SELFPAY ==
[2024-03-15 11:18] VITALS: BP 135/74; PULSE 94; RESP 16; TEMP 36.3; O2SAT 99
== END ==
LOC: ONC 10:46
PROVIDERS: PCP Nurse Practitioner; Referring Provider Internal Medicine Nephrology; Visit Provider Internal Medicine Nephrology
DX: N18.4 Chronic kidney disease, stage 4 (severe) (principal); D63.1 Anemia in chronic kidney disease

== ENCOUNTER → 2024-03-29 10:40 | Outpatient (CLI) | payer OTHER, SELFPAY ==
[2024-03-29 11:20] LABS: Hematocrit 34.4 % (41-53); Hemoglobin 12.1 g/dL (13.5-17.5); Mean Corpuscular HGB Conc 35.2 % (30-36); Mean Corpuscular Hemoglobin 31.7 PG (26-34); Platelet Count 189 X10^3/uL (150-400); Red Blood Cell Count 3.83 X10^6/uL (4.5-5.9); Red Cell Distribution Width 15.2 % (11.6-14.8); White Blood Cell Count 4.8 X10^3/uL (4.5-11.0)
[2024-03-29 11:26] VITALS: BP 123/74; PULSE 80; RESP 18; TEMP 36.6; O2SAT 99
[2024-04-12 11:18] LABS: Hemoglobin 12.2 g/dL (13.5-17.5); Mean Corpuscular HGB Conc 34.8 % (30-36); Mean Corpuscular Hemoglobin 31.6 PG (26-34); Mean Corpuscular Volume 90.9 fL (80-100); Platelet Count 201 X10^3/uL (150-400); Red Blood Cell Count 3.86 X10^6/uL (4.5-5.9); Red Cell Distribution Width 15.6 % (11.6-14.8); White Blood Cell Count 5.4 X10^3/uL (4.5-11.0)
[2024-04-12 11:36] LABS: HEMOLYSIS < 15 (0-50); Iron 61 ug/dL (49-181)
[2024-04-12 11:37] LABS: Blood Urea Nitrogen 40 mg/dL (9-20); Carbon Dioxide 27 mmol/L (22-32); Chloride 106 mmol/L (98-107); Estimated Glomerular Filt Rate 27 mL/min (>60); Glucose 101 mg/dL (70-100); HEMOLYSIS < 15 (0-50); Potassium 4.4 mmol/L (3.4-5.1); Sodium 139 mmol/L (137-145)
[2024-04-12 11:47] LABS: Percent Iron Saturation 24 % (20-50); Total Iron Binding Capacity 255 ug/dL (261-462); Transferrin 198 mg/dL (206-381)
[2024-04-12 12:16] LABS: Ferritin 139 ng/mL (18-464)
== END ==
PROVIDERS: PCP Nurse Practitioner; Referring Provider Internal Medicine Nephrology; Visit Provider Internal Medicine Nephrology
DX: N18.4 Chronic kidney disease, stage 4 (severe) (principal); D63.1 Anemia in chronic kidney disease
CPT/HCPCS: 36415; 80048; 82728; 83540; 83550; 85027

== ENCOUNTER → 2024-04-12 10:46 | Outpatient (CLI) | payer OTHER, SELFPAY ==
[2024-04-12 11:44] VITALS: BP 124/74; PULSE 90; RESP 18; TEMP 36.7; O2SAT 99
== END ==
PROVIDERS: PCP Nurse Practitioner; Referring Provider Internal Medicine Nephrology; Visit Provider Internal Medicine Nephrology
DX: D63.1 Anemia in chronic kidney disease (principal); N18.4 Chronic kidney disease, stage 4 (severe)

== ENCOUNTER → 2024-04-26 10:43 | Outpatient (CLI) | payer OTHER, SELFPAY ==
[2024-04-26 11:06] LABS: Add Manual Diff / Slide Review NO; Basophils Absolute Auto 100 /uL (0-100); Basophils Percent Auto 0.9 % (0-2); Eosinophils Absolute Auto 100 /uL (0-450); Eosinophils Percent Auto 2.4 % (2-4); Hemoglobin 11.3 g/dL (13.5-17.5); Lymphocytes Absolute Auto 1300 /uL (1100-4500); Lymphocytes Percent Auto 22.1 % (25-40); Mean Corpuscular HGB Conc 35.2 % (30-36); Mean Corpuscular Hemoglobin 31.9 PG (26-34); Mean Corpuscular Volume 90.6 fL (80-100); Monocytes Absolute Auto 500 /uL (0-900); Monocytes Percent Auto 8.3 % (3-14); Neutrophils Absolute Auto 3900 /uL (1500-7000); Neutrophils Percent Auto 66.3 % (50-75); Platelet Count 220 X10^3/uL (150-400); Red Blood Cell Count 3.54 X10^6/uL (4.5-5.9); White Blood Cell Count 5.8 X10^3/uL (4.5-11.0)
[2024-04-26 11:31] VITALS: BP 121/64; PULSE 98; RESP 18; TEMP 36.6; O2SAT 99
--- NOTE | 2024-04-26 11:35 | PC.NURSE ---
Hgb 11.3 today. Orders unclear. Patient showed note in patient chart from Dr. Whitney to hold REtacrit if Hgb >11. This matches note of 02/17/24 on order that per Terese to resume dose if Hgb <11. Patient descharged without retacrit today and call in to Terese to communicate that we need a new order.
--- NOTE | 2024-05-04 13:20 | PC.NURSE ---
hgb 11.3 on 04/26/24; per Terese Whitney ordered patient to get next Retacrit at the next 2 week appt.
== END ==
PROVIDERS: PCP Nurse Practitioner; Referring Provider Internal Medicine Nephrology; Visit Provider Internal Medicine Nephrology
DX: N18.4 Chronic kidney disease, stage 4 (severe) (principal); D63.1 Anemia in chronic kidney disease
CPT/HCPCS: 85025

== ENCOUNTER → 2024-05-10 10:45 | Outpatient (CLI) | payer OTHER, SELFPAY ==
[2024-05-10 11:05] VITALS: BP 144/74; PULSE 90; RESP 16; TEMP 36.9; O2SAT 98
[2024-05-10 11:05] LABS: Hematocrit 32.4 % (41-53); Hemoglobin 11.5 g/dL (13.5-17.5)
== END ==
PROVIDERS: PCP Nurse Practitioner; Referring Provider Internal Medicine Nephrology; Visit Provider Internal Medicine Nephrology
DX: N18.4 Chronic kidney disease, stage 4 (severe) (principal); D63.1 Anemia in chronic kidney disease
CPT/HCPCS: 85014; 85018